=== PATIENT | female | born 1945 | race Two or more races ===

== ENCOUNTER 2019-06-30 14:51 | Emergency (ER) | payer OTHER ==
[~2019-06-30] VITALS: Ht 152.4 cm; Wt 66.1 kg
[~2019-06-30 14:51] MED LIST: PANT40TA3
[2019-06-30 14:58] VITALS: BP 161/59; PULSE 88; RESP 16; Ht 152.4 cm; Wt 66.1 kg
[2019-06-30] MEDS ORDERED: KETOROLAC 30 MG INJ IM STA (15:34)
== END 2019-06-30 16:37 | disposition home or self-care (01) ==
LOC: FTE 14:51
DX: M25.552 Pain in left hip (principal)
CPT/HCPCS: 96372; 99284; J1885